=== PATIENT | female | born 1975 ===

== ENCOUNTER 2019-05-06 16:53 | Emergency (ER) | payer BC ==
[2019-05-06 17:00] VITALS: BMI 27.4
--- NOTE | 2019-05-06 18:36 | PDOC ---
History of Present Illness - General Chief Complaint: Respiratory Stated Complaint: COUGHING/VOMITTING/HIGH B/P Time Seen by Provider: 05/06/19 17:10 - History of Present Illness Initial Comments: Ms. Mcnulty is a 43 y/o female with PMH significant for HTN, HLD, presenting today with three weeks of cough and sent in by urgent care for high blood pressure. Reports productive cough with light yellow sputum. Reports subjective fever and chills last night. Denies chest pain or shortness of breath. Denies abdominal pain, urinary symptoms, changes in stool. Denies leg swelling. Denies nausea/vomiting. No headache. No blurry vision. BP at urgent care was 230/120. Past History - Past Medical History Allergies/Adverse Reactions: Allergies Allergy/AdvReac Type Severity Reaction Status Date / Time No Known Allergies Allergy Unverified 05/06/19 16:59 Home Medications: Ambulatory Orders Oxycodone HCl/Acetaminophen [Percocet 5-325 mg Tablet -] 1 - 2 tab PO Q6H PRN # 14 tablet 09/05/13 Metoprolol Tartrate 200 mg PO DAILY 05/06/19 Cardiac Disorders: Yes (SVT) COPD: No HTN: Yes - Psycho Social/Smoking Cessation Hx Smoking History: Current every day smoker Have you smoked in the past 12 months: Yes Number of Cigarettes Smoked Daily: 5 Information on smoking cessation initiated: No 'Breaking Loose' booklet given: 09/05/13 Hx Alcohol Use: No Substance Use Type: None Review of Systems - Review of Systems Comments:: GENERAL/CONSTITUTIONAL: Reports fever and chills. No weakness._ HEAD, EYES, EARS, NOSE AND THROAT: No change in vision. No change in hearing. No sore throat._ CARDIOVASCULAR: No chest pain or shortness of breath_ RESPIRATORY: Reports cough. No hemoptysis_ GASTROINTESTINAL: No nausea, vomiting, diarrhea or constipation._ GENITOURINARY: No dysuria, frequency, or change in urination._ MUSCULOSKELETAL: No joint or muscle swelling or pain. No neck or back pain._ SKIN: No rash_ NEUROLOGIC: No headache, vertigo, loss of consciousness, or change in strength/ sensation._ ENDOCRINE: No increased thirst. No abnormal weight change_ HEMATOLOGIC/LYMPHATIC: No anemia, easy bleeding, or history of blood clots._ ALLERGIC/IMMUNOLOGIC: No hives or skin allergy._ *Physical Exam - Vital Signs Last Vital Signs Temp Pulse Resp BP Pulse Ox 97.8 F 111 H 18 216/132 H 99 05/06/19 16:57 05/06/19 16:57 05/06/19 16:57 05/06/19 16:57 05/06/19 16:57 - Physical Exam Comments: GENERAL: Awake, alert, and oriented to person/place/time, in no acute distress_ HEAD: No signs of trauma, normocephalic, atraumatic _ EYES: PERRLA, EOMI, sclera anicteric, conjunctiva clear_ ENT: Hearing grossly normal, nares patent, oropharynx clear without exudates. No uvular deviation. Moist mucosa_ NECK: Normal ROM, supple, no lymphadenopathy, JVD, or masses_ LUNGS: No distress, speaks in full sentences, clear to auscultation bilaterally. No wheezes. No crackles. HEART: Regular rate and rhythm, normal S1 and S2, no murmurs appreciated, peripheral pulses normal and equal bilaterally._ ABDOMEN: Soft, nontender, normoactive bowel sounds. No guarding, no rebound. 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 Normal range of motion, no edema. No clubbing or cyanosis. NEUROLOGICAL: Cranial nerves II through XII grossly intact. Normal speech, normal gait, no focal sensorimotor deficits _ SKIN: Warm, Dry, normal turgor, no rashes or lesions noted_ ED Treatment Course - LABORATORY CBC & Chemistry Diagram: 05/06/19 19:37 05/06/19 19:37 - Medications Given in the ED: ED Medications Discontinued Medications Generic Name Dose Route Start Last Admin Trade Name Canq PRN Reason Stop Dose Admin Metoprolol Succinate 200 mg 05/06/19 18:06 05/06/19 18:17 Toprol Xl - PO 05/06/19 18:07 200 mg ONCE ONE Administration Medical Decision Making - Medical Decision Making 43F hx of HTN HLD sent in by urgent care for BP 230/120. Cough for 3 weeks. Missed 2 doses of home metoprolol. -will give metoprolol 200 mg PO (home dose) -CXR, cbc, cmp, given chronic cough and fever/chills last night to r/o PNA 05/06/19 21:01 Pt reassessed. BP 201/117. -will give norvasc 10 mg 05/06/19 21:36 CXR shows no acute intrathoracic pathology and no signs of pneumonia. Pt reasessed. BP 207/140. -hydralazine 10 mg IV 05/06/19 22:15 Pt reassessed. BP 186/117. Plan to d/c home, f/u PCP Dr. Ovalles for blood pressure management. Patient and family verbalized agreement and understanding of plan. All questions answered. Return precautions given. Discharge - Discharge Information Problems reviewed: Yes Clinical Impression/Diagnosis: Cough Condition: Stable Disposition: HOME - Admission No - Follow up/Referral Referrals: Marvin Ovalles MD, MD [Staff Physician] - - Patient Discharge Instructions Patient Printed Discharge Instructions: DI for Cough -- Adult, DI for High Blood Pressure Additional Instructions: Please make an appointment with your primary care doctor for medications to control your blood pressure. Please take over the counter medications as needed for your cough. If you experience any new, worsening, or concerning symptoms, including chest pain, shortness of breath, or any other concerns, please return to the emergency department. - Post Discharge Activity
[2019-05-06 19:50] LABS: BASO % 0.6 % (0-2.0); EOS % 2.9 % (0-4.5); HEMATOCRIT 42.7 % (32.4-45.2); HEMOGLOBIN 14.5 GM/dL (10.7-15.3); LYMPH % 24.2 % (8-40); MCH 31.1 pg (25.7-33.7); MCHC 33.9 g/dl (32.0-36.0); MEAN CELL VOLUME 91.5 fl (80-96); MEAN PLT VOLUME 9.6 fl (7.5-11.1); MONO % 3.3 % (3.8-10.2); PLATELET COUNT 207 K/MM3 (134-434); RBC 4.66 M/mm3 (3.60-5.2); RDW 12.3 % (11.6-15.6); WHITE BLOOD COUNT 9.7 K/mm3 (4.0-10.0)
[2019-05-06 20:18] LABS: BILIRUBIN,TOTAL 0.2 mg/dL (0.2-1); BLOOD UREA NITROGEN 13.4 mg/dL (7-18); CALCIUM 8.9 mg/dL (8.5-10.1); CREATININE 0.7 mg/dL (0.55-1.3); POTASSIUM 3.6 mmol/L (3.5-5.1); TOT PROT 7.1 g/dl (6.4-8.2)
[2019-05-06 20:56] VITALS: TEMP 98.5
[2019-05-06] MEDS ORDERED: amLODIPine BESYLATE 10 MG TABLET (FP) PO ONE (20:58)
[2019-05-06] MEDS ORDERED: amLODIPine BESYLATE 5 MG TABLET (FP) ONE (21:12)
[2019-05-06] MEDS ORDERED: hydrALAZINE HCL 20 MG/ML VIAL IVPUSH ONE (21:36)
[2019-05-06] MEDS ORDERED: hydrALAZINE HCL 20 MG/ML VIAL ONE (21:37)
--- NOTE | 2019-05-06 22:07 | PDOC ---
Documentation entered by Fay Davenport SCRIBE, acting as scribe for Siomara De La Cruz MD. Siomara De La Cruz MD: This documentation has been prepared by the nilsaibeIssac Lincy, SCRIBE, under my direction and personally reviewed by me in its entirety. I confirm that the documentation accurately reflects all work, treatment, procedures, and medical decision making performed by me. Attending Attestation - Resident Resident Name: Dima Tavarez - HPI HPI: 05/06/19 19:22 The patient is a 43-year-old female with a past medical history significant for HTN and HLD who was sent to the emergency department from Urgent Care for an elevated blood pressure of 230/120. The patient reports she was following up at Urgent Care for 2-3 days of productive cough with yellow Phlegm production, associated with subjective fever and chills last night. The patient was seen at Urgent Care, where the patients blood pressure was noted to be 230/180 and was sent to the ER for further management. Denies shortness of breath or chest pain. Allergies: NKA PCP: Dr. Charles Wong. - Physicial Exam PE: 05/06/19 20:32 GENERAL: Awake, alert, and fully oriented, in no acute distress LUNGS: Breath sounds equal, clear to auscultation bilaterally. HEART: Regular rate and rhythm. ABDOMEN: Soft, nontender, nondistended. NEUROLOGICAL: +alert, awake and oriented x3, normal mood and affect, cranial nerve grossly intact. - Medical Decision Making 05/06/19 21:55 Pt presents to the ED complaining of cough productive of yellow sputum and subjective fever. Cough started three weeks ago, but subjective fever was yesterday. Patient denies chest pain or shortness of breath. History of HTN, compliant with metoprolol, not on any additional medications. BP improved with norvasc and hydralizine in the ED--patient has no symptoms of elevated BP. Labs are within normal limits. EKG and CXR are normal. Will discharge home with instructions to return to the ED for worsening symptoms and to follow up with her PMD on Wednesday.
[2019-05-06 22:20] VITALS: BP 186/107; PULSE 79
== END 2019-05-06 22:30 | disposition home or self-care (01) ==
LOC: JER 16:53
PROC: 3E033GC Introduction of Other Therapeutic Substance into Peripheral Vein, Percutaneous Approach (ICD-10-PCS; principal; 2019-05-06)
DX: R05 Cough (principal); I10 Essential (primary) hypertension
CPT/HCPCS: 36415; 71046-TC-FY; 80053; 85025; 99283-25

== ENCOUNTER 2023-01-25 06:20 | Inpatient (IN) | payer BC ==
[2023-01-25] MEDS ORDERED: dilTIAZem HCL 50 MG/10 ML - 10 ML VIAL IVPUSH ONE ×3 (06:44→16:44)
[2023-01-25] MEDS ORDERED: dilTIAZem HCL 50 MG/10 ML - 10 ML VIAL ONE ×2 (06:52→08:19)
[2023-01-25 08:08] LABS: BASO % 0.7 % (0-2.0); EOS % 2.3 % (0-4.5); HEMATOCRIT 48.4 % (32.4-45.2); HEMOGLOBIN 16.2 GM/dL (10.7-15.3); LYMPH % 27.9 % (8-40); MCH 30.2 pg (25.7-33.7); MCHC 33.5 g/dl (32.0-36.0); MEAN PLT VOLUME 9.9 fl (7.5-11.1); MONO % 4.8 % (3.8-10.2); NEUT % 64.3 % (42.8-82.8); PLATELET COUNT 250 10^3/uL (134-434); RBC 5.37 M/mm3 (3.60-5.2); RDW 12.7 % (11.6-15.6); WHITE BLOOD COUNT 8.7 K/mm3 (4.0-10.0)
[2023-01-25] MEDS ORDERED: dilTIAZem HCL 30 MG TABLET ONE (08:18)
[2023-01-25 08:41] LABS: CALCIUM 8.6 mg/dL (8.5-10.1)
[2023-01-25 08:42] LABS: ALBUMIN 3.6 g/dl (3.4-5.0); MAGNESIUM 2.2 mg/dL (1.8-2.4)
[2023-01-25 08:45] LABS: CREATININE 0.7 mg/dL (0.55-1.3)
[2023-01-25 08:46] LABS: BILIRUBIN,TOTAL 0.3 mg/dL (0.2-1); TOT PROT 7.3 g/dl (6.4-8.2)
[2023-01-25] MEDS ORDERED: APIXABAN 5 MG TABLET PO ONE (10:00)
[2023-01-25] MEDS ORDERED: METOPROLOL TARTRATE 50 MG TABLET (FP) PO ONE (10:00)
[2023-01-25] MEDS ORDERED: APIXABAN 5 MG TABLET ONE (10:29)
[2023-01-25] MEDS ORDERED: METOPROLOL TARTRATE 50 MG TABLET (FP) ONE (10:30)
[2023-01-25] MEDS ORDERED: amLODIPine BESYLATE 5 MG TABLET (FP) PO ONE (14:34)
[2023-01-25] MEDS ORDERED: amLODIPine BESYLATE 5 MG TABLET (FP) ONE (15:46)
[2023-01-25] MEDS: dilTIAZem HCL 30 MG TABLET PO SCH (17:44)
[2023-01-25 18:48] VITALS: BMI 26.9
[2023-01-25] MEDS: hydrALAZINE HCL 25 MG TABLET (FP) PO SCH ×2 (22:02)
[2023-01-25] MEDS: APIXABAN 5 MG TABLET PO SCH (22:03)
[2023-01-25] MEDS: METOPROLOL TARTRATE 50 MG TABLET (FP) PO SCH (22:03)
[2023-01-26] MEDS: dilTIAZem HCL 30 MG TABLET PO SCH ×3 (00:09→12:21)
[2023-01-26 08:06] LABS: BASO % 0.5 % (0-2.0); EOS % 2.3 % (0-4.5); HEMATOCRIT 46.9 % (32.4-45.2); HEMOGLOBIN 16.2 GM/dL (10.7-15.3); LYMPH % 35.8 % (8-40); MCHC 34.5 g/dl (32.0-36.0); MEAN CELL VOLUME 86.9 fl (80-96); MEAN PLT VOLUME 9.1 fl (7.5-11.1); MONO % 4.7 % (3.8-10.2); NEUT % 56.7 % (42.8-82.8); PLATELET COUNT 241 10^3/uL (134-434); WHITE BLOOD COUNT 9.1 K/mm3 (4.0-10.0)
[2023-01-26 08:35] LABS: POTASSIUM 3.7 mmol/L (3.5-5.1)
[2023-01-26 08:47] LABS: URINE APPEARANCE CLEAR; URINE BILIRUBIN NEGATIVE (NEGATIVE); URINE COLOR YELLOW; URINE GLUCOSE (UA) NEGATIVE (NEGATIVE); URINE KETONE NEGATIVE (NEGATIVE); URINE LEUK ESTERASE NEGATIVE (NEGATIVE); URINE NITRITE NEGATIVE (NEGATIVE); URINE PROTEIN NEGATIVE (NEGATIVE); URINE UROBILINOGEN 0.2 mg/dL (0.2-1.0)
[2023-01-26 08:48] LABS: CALCIUM 8.8 mg/dL (8.5-10.1)
[2023-01-26 08:49] LABS: ALBUMIN 3.5 g/dl (3.4-5.0); BLOOD UREA NITROGEN 11.8 mg/dL (7-18); MAGNESIUM 2.3 mg/dL (1.8-2.4)
[2023-01-26 08:52] LABS: CREATININE 0.7 mg/dL (0.55-1.3); PHOSPHOROUS 3.7 mg/dL (2.5-4.9)
[2023-01-26 08:53] LABS: CHOLESTEROL 304 mg/dL (50-200); TOT PROT 6.9 g/dl (6.4-8.2)
[2023-01-26 08:54] LABS: BILIRUBIN,TOTAL 0.7 mg/dL (0.2-1); LDL CHOLESTEROL (ONLY SJRH) 223 mg/dL (5-100)
[2023-01-26 08:57] LABS: HDL CHOLESTEROL 39 mg/dL (40-60)
[2023-01-26] MEDS: hydrALAZINE HCL 25 MG TABLET (FP) PO SCH ×2 (09:21→21:07)
[2023-01-26] MEDS: APIXABAN 5 MG TABLET PO SCH ×2 (09:22→21:07)
[2023-01-26] MEDS: METOPROLOL TARTRATE 50 MG TABLET (FP) PO SCH ×2 (09:22→21:07)
[2023-01-26 18:32] VITALS: RESP 20
[2023-01-26] MEDS ORDERED: ATORVASTATIN CA 40 MG TABLET (FP) PO SCH (22:00)
[2023-01-27 08:09] LABS: HEMATOCRIT 45.7 % (32.4-45.2); HEMOGLOBIN 15.7 GM/dL (10.7-15.3); MCH 30.3 pg (25.7-33.7); MCHC 34.4 g/dl (32.0-36.0); MEAN CELL VOLUME 88.2 fl (80-96); PLATELET COUNT 242 10^3/uL (134-434); RBC 5.19 M/mm3 (3.60-5.2); RDW 12.4 % (11.6-15.6); WHITE BLOOD COUNT 8.7 K/mm3 (4.0-10.0)
[2023-01-27 08:28] LABS: POTASSIUM 3.7 mmol/L (3.5-5.1)
[2023-01-27 08:30] LABS: CALCIUM 8.7 mg/dL (8.5-10.1)
[2023-01-27 08:31] LABS: ALBUMIN 3.4 g/dl (3.4-5.0); BLOOD UREA NITROGEN 11.3 mg/dL (7-18); MAGNESIUM 2.4 mg/dL (1.8-2.4)
[2023-01-27 08:34] LABS: CREATININE 0.7 mg/dL (0.55-1.3); PHOSPHOROUS 3.9 mg/dL (2.5-4.9)
[2023-01-27 08:35] LABS: TOT PROT 6.6 g/dl (6.4-8.2)
[2023-01-27 08:37] LABS: BILIRUBIN,TOTAL 0.6 mg/dL (0.2-1)
[2023-01-27] MEDS: hydrALAZINE HCL 25 MG TABLET (FP) PO SCH (09:20)
[2023-01-27] MEDS: METOPROLOL TARTRATE 50 MG TABLET (FP) PO SCH (09:20)
[2023-01-27] MEDS: APIXABAN 5 MG TABLET PO SCH (09:20)
[2023-01-27 10:23] VITALS: BP 174/108; PULSE 97; TEMP 98.7
== END 2023-01-27 15:27 | disposition home or self-care (01) | DRG 309 ==
LOC: JER 06:20 → UNDOADMOB 09:59 → INTOOBSV 09:59 → JERBED 09:59 → J4W 18:13 → OBSVTOIN 01-26 13:55
PROVIDERS: ADMIT Internal Medicine; ATTEND Internal Medicine
DX: I48.91 Unspecified atrial fibrillation (principal); I16.1 Hypertensive emergency; E78.5 Hyperlipidemia, unspecified; D75.1 Secondary polycythemia; F17.210 Nicotine dependence, cigarettes, uncomplicated
CPT/HCPCS: 36415; 71045-TC-FY; 80053; 80061; 81003; 83735; 84100; 84439; 84443; 84484; 85025; 85027; 93005; 93010; 93306-TC; 99285-25; G0378